=== PATIENT | female | born 1955 | race Caucasian/White ===

== ENCOUNTER 2016-07-02 19:25 | Emergency (ER) | payer OTHER ==
[~2016-07-02 19:25] MED LIST: ACET500CAP PO; ASA5GR PO; ASAB PO; CRESTOR10 PO; ESTRACE1 MG PO; IMDUR30 PO; IMDUR60 PO; KLOR-CON20 MEQ PO; L40 PO; LIPITOR40 PO; LOP50 PO; NEXIUM40 PO; NITROMIST400 MCG SL; NORCO1 TA1 PO; NORCO1 TAB PO; NORV25 PO; PLAVIX PO; PRILOSEC40 MG PO; PRIN20 PO; PROTONIX PO; ULTRAM50 PO; ZOL50 PO
[2016-07-19] MEDS ORDERED: GYNODIOL0.5 MG PO (13:29)
[2016-07-19] MEDS ORDERED: ZOL100 PO (13:30)
[2016-07-19] MEDS ORDERED: ULTRAM50 PO (13:32)
[2016-07-19] MEDS ORDERED: NORCO1 TAB PO (13:32)
[2016-07-19] MEDS ORDERED: NEXIUM40 PO (13:33)
[2016-07-19] MEDS ORDERED: ZANTAC150 MG PO (13:33)
== END 2016-07-03 01:49 | disposition home or self-care (01) ==
LOC: ER 19:25
DX: S39.012A Strain of muscle, fascia and tendon of lower back, initial encounter (principal); S29.012A Strain of muscle and tendon of back wall of thorax, initial encounter; Z95.1 Presence of aortocoronary bypass graft; Z87.891 Personal history of nicotine dependence; W19.XXXA Unspecified fall, initial encounter
CPT/HCPCS: 71020; 72100; 99284; A9270-GY

== ENCOUNTER 2016-07-29 08:01 | Day surgery (SDC) | payer OTHER ==
--- NOTE | ~2016-07-29 | EGD ---
EGD REPORT [facility] [address] [address] NAME: SHARI MAHARAJ : 53 STATUS : REG [facility]#: [id number] AGE: 61 ADM/REG DATE : 07/29/16 MR#: [id number] REPORT SERV DATE: 07/29/16 DICTATED BY: TRACY MALONE DATE: 07/29/16 REPORT STATUS : Draft [facility]: [facility] DATE: 07/29/16 Endoscopy Center Patient Name: Shari Maharaj Date of : 1955 Attending MD: TRACY MALONE MD Procedure Date No Time: 07/29/2016 Procedure: Upper GI endoscopy Indications: Follow-up of acute gastric ulcer Referring MD: REGGIE CELIS Medicines: See the Anesthesia note for documentation of the administered medications Complications: No immediate complications. Procedure: Pre-Anesthesia Assessment: - ASA Grade Assessment: III - A patient with severe systemic disease. After obtaining informed consent, the endoscope was passed under direct vision. Throughout the procedure, the patient's blood pressure, pulse, and oxygen saturations were monitored continuously. The GIF [id number] was introduced through the mouth, and advanced to the second part of duodenum. The upper GI endoscopy was accomplished without difficulty. The patient tolerated the procedure well. Findings: A small hiatus hernia was present. The examined duodenum was normal. Mild inflammation was found in the gastric antrum. Biopsies were taken with a cold forceps for histology. A few small sessile polyps were found in the gastric body. Biopsies were taken with a cold forceps for histology. The cardia and gastric fundus were normal on retroflexion. Impression: - Hiatus hernia. - Normal examined duodenum. - Gastritis. Biopsied. - A few gastric polyps. Biopsied. Recommendation: - Patient has a contact number available for emergencies. The signs and symptoms of potential delayed complications were discussed with the patient. Return to normal activities tomorrow. Written discharge instructions were provided to the patient. - Regular diet. - Continue present medications. EGD REPORT [address] [address] NAME: SHARI MAHARJA : [birth year] STATUS : REG [facility]#: [id number] AGE: 61 ADM/REG DATE : 07/29/16 MR#: [id number] REPORT SERV DATE: 07/29/16 DICTATED BY: TRACY MALONE DATE: 07/29/16 REPORT STATUS : Draft TRANSCRIBED BY: [employer] DATE: 07/29/16 - FOR YOUR BIOPSY RESULTS: Please go to [email or web address] and register to receive your results via the portal. Your biopsy results will be posted there in about 7 to 10 days. IF you do not see result in 10 days, call office. Procedure Code(s): --- Professional --- 83379, Esophagogastroduodenoscopy, flexible, transoral; with biopsy, single or multiple Diagnosis Code(s): --- Professional --- K44.9, Diaphragmatic hernia without obstruction or gangrene K29.70, Gastritis, unspecified, without bleeding K31.7, Polyp of stomach and duodenum K25.3, Acute gastric ulcer without hemorrhage or perforation CPT copyright 2013 [employer]. All rights reserved. The codes documented in this report are preliminary and upon mis director review may be revised to meet current compliance requirements. Tracy aMlone MD TRACY MALONE MD 07/29/2016 9:17 AM This report has been signed electronically. Number of Addenda: 0 Note Initiated On: 07/29/2016 9:02 AM Scope Withdrawal Time 0 hours 0 minutes 0 seconds [address] [id number]
[~2016-07-29 08:01] MED LIST changes: +GYNODIOL0.5 MG PO; +ZANTAC150 MG PO; +ZOL100 PO
== END 2016-07-29 23:59 | disposition home or self-care (01) ==
LOC: DMU 08:01
PROVIDERS: Internal Medicine Gastroenterology
PROC: 0DB68ZX Excision of Stomach, Via Natural or Artificial Opening Endoscopic, Diagnostic (ICD-10-PCS; principal; 2016-07-29 09:30)
DX: K31.7 Polyp of stomach and duodenum (principal); K44.9 Diaphragmatic hernia without obstruction or gangrene; I10 Essential (primary) hypertension; I25.10 Atherosclerotic heart disease of native coronary artery without angina pectoris; K29.70 Gastritis, unspecified, without bleeding; K25.3 Acute gastric ulcer without hemorrhage or perforation; Z95.1 Presence of aortocoronary bypass graft
CPT/HCPCS: 88305